=== PATIENT | female | born 1990 | race Two or more races ===

== ENCOUNTER 2025-07-27 14:36 | Emergency (ER) | payer OTHER ==
[~2025-07-27] VITALS: Ht 167.6 cm; Wt 74.4 kg
[2025-07-27 17:34] LABS: BASO % 0.5 % (0.1-1.2); EOS # 0.24 (0.04-0.54); EOS % 2.9 % (0.7-7.0); LYMPH # 2.54 (1.18-3.74); LYMPH % 30.8 % (19.3-53.1); MEAN PLATELET VOLUME 11.40 fl (9.4-12.4); MONO # 0.80 (0.24-0.82); MONO % 9.7 % (4.7-12.5); NEUT # 4.61 (1.56-6.13); NEUT % 55.9 % (34.0-71.1); RED CELL DISTRIBUTION WIDTH 13.4 % (11.6-14.4)
[2025-07-27 18:04] LABS: URINE APPEARANCE Clear; URINE BILIRRUBIN Negative (NEGATIVE); URINE BLOOD Negative; URINE COLOR Yellow; URINE GLUCOSE Negative (NEGATIVE); URINE KETONE Negative (NEGATIVE); URINE LEUKOCYTE Negative; URINE NITRATE Negative; URINE PROTEIN Negative (NEGATIVE); URINE UROBILINOGEN 0.2 E.U./dl
[2025-07-27 18:05] LABS: URINE BACTERIA 167.9 uL (0.0-1933); URINE RBC 35.1 uL (0.0-20.8)
[2025-07-27 18:06] LABS: URINE CAST 0.00 uL (0.0-1.40); URINE EPITHELIAL CELLS 1.2 uL (0.0-38.8); URINE WBC 0.7 uL (0.0-23.2)
[2025-07-27 18:28] LABS: ALT/SGPT 22.0 U/L (12-78); AST/SGOT 11.0 U/L (15-37); BILIRUBIN TOTAL 0.44 mg/dL (0.3-1.2); BUN CREA RATIO 18.0 (7.0-25.0); CREATININE SERUM 0.88 mg/dL (0.55-1.02); GFR 72.3; GLOBULINA 3.8 G/DL (2.4-3.5); GLUCOSE FASTING 96.0 mg/dL (65-100); OSMOLALITY SERUM 280.0 MOSM/KG (275-295)
[2025-07-27] MEDS ORDERED: IBUPROFEN800 MG PO (20:03)
[2025-07-27] MEDS ORDERED: NORFLEX100MG PO (20:03)
[2025-07-27] MEDS ORDERED: ORPHENADRINE CITRATE 100 MG TABLET PO ONE (20:15)
== END 2025-07-27 20:29 | disposition home or self-care (01) ==
LOC: ER 14:36
PROVIDERS: Preventive Medicine Public Health & General Preventive Medicine
DX: M54.50 Low back pain, unspecified (principal); G43.909 Migraine, unspecified, not intractable, without status migrainosus; K59.00 Constipation, unspecified